=== PATIENT | female | born 1995 | race Caucasian/White ===

== ENCOUNTER → 2019-01-04 | Outpatient (CLI) | payer OTHER ==
--- NOTE | 2019-01-04 11:23 | RAD ---
Study: Ultrasound first trimester DATE: 01/04/2019 11:00 AM INDICATION: Assess viability. COMPARISON: None. TECHNIQUE: Transabdominal ultrasonography of the pelvis was performed. Color Doppler and duplex were utilized as appropriate. FINDINGS: The uterus is measured at 12.2 x 0.3 x 6.8 cm. Intrauterine gestational sac measuring 4.5 x 3.9 x 3.4 cm with a mean sac diameter of 3.9 cm corresponding to an estimated gestational age of 9 weeks 2 days. pole is present with a measured crown-rump length of 1.89 cm. No yolk sac is seen. No heart tones detected. The cervix measures 3.9 cm in length. The right ovary measures 3.6 x 2.6 x 2.7 cm. The left ovary measures 3.3 x 2.1 x 2.2 cm. Normal Doppler flow to both ovaries. No free fluid within the pelvis. IMPRESSION: Intrauterine gestational sac containing a pole with a measured crown-rump length of 1.9 cm but no detectable heart tones. No yolk sac is seen. Estimated gestational age based on crown-rump length is 8 weeks 3 days and by mean sac diameter of 9 weeks 2 days. Based on last menstrual period estimated gestational age is 13 weeks 0 days. The absence of heart tones in the setting of the obtained gestational sac and crown-rump length measurement is essentially diagnostic of a failed first trimester . The cervix remains closed. Obstetrical consultation is recommended. Electronically signed by: IBETH SALINAS MD (01/04/2019 11:20 AM) [id number]
== END | disposition home or self-care (01) ==
LOC: US 10:34
PROVIDERS: ATTEND Obstetrics & Gynecology
DX: Z34.91 Encounter for supervision of normal pregnancy, unspecified, first trimester (principal); Z3A.13 13 weeks gestation of pregnancy
CPT/HCPCS: 76801

== ENCOUNTER 2019-01-14 12:02 | Day surgery (SDC) | payer OTHER ==
[~2019-01-14] VITALS: Ht 160 cm; Wt 59.0 kg
[~2019-01-14 12:02] MED LIST: HYDROmorphone 2 MG/ML VIAL IV PRN; IV RINGERS,LACTATED 1000ML 1,000 ML IV SCH; LIDOCAINE 1% PF 2 ML VIAL. ID PRN; MORPHINE SULFATE 2 MG/ML VIAL. IV PRN; ONDANSETRON PF 4 MG/2 ML VIAL. IV PRN; PROCHLORPERAZINE 10 MG/2 ML VIAL. IV PRN; fentaNYL PF VIAL 100 MCG/2 ML VIAL IV PRN
[2019-01-14] MEDS ORDERED: KETOROLAC 30 MG/ML VIAL. ONE (14:11)
[2019-01-14] MEDS ORDERED: LIDOCAINE 2% PF 5 ML VIAL. ONE (14:11)
[2019-01-14] MEDS ORDERED: ONDANSETRON PF 4 MG/2 ML VIAL. ONE (14:11)
[2019-01-14] MEDS ORDERED: DEXAMETHASONE SOD PHOS 4 MG/ML VIAL ONE (14:11)
[2019-01-14] MEDS ORDERED: PROPOFOL 20 ML IV ONE (14:11)
[2019-01-14] MEDS ORDERED: SEVOFLURANE 16 TO 30 MINUTES. IH ONE (14:11)
[2019-01-14] MEDS ORDERED: miSOPROStol 200 MCG TABLET ONE (14:47)
[2019-01-14] MEDS ORDERED: miSOPROStol 200 MCG TABLET VG ONE (14:52)
--- NOTE | 2019-01-14 14:59 | PDOC ---
BRIEF OPERATIVE NOTE Date: Jan 14, 2019 Pre-Op Diagnosis MAB Post-Op Diagnosis SAme Procedure Performed Suction D&C Surgeon Dr. Garcia Anesthesia Type: General Blood Loss 100 ml Specimens Obtained POC Findings POC Complications none Operative Note see dictation SABRA GARCIA Jr, MD Jan 14, 2019 14:59
--- NOTE | 2019-01-14 15:01 | DISCH ---
DISCHARGE INSTRUCTIONS Condition on Discharge Condition on Discharge: Stable Activity After Discharge Activity Instructions for Disc: Activity as tolerated Lifting Instructions after Dis: No heavy lifting Driving Instructions after Dis: Do not drive today Diet after Discharge Diet after Discharge: Regular Contacting the DRRamona after DC Call your doctor for: Concerns you may have Follow-Up Follow up with: Dr. Garcia in 1 week SABRA GARCIA Jr, MD Jan 14, 2019 15:01
[2019-01-14] MEDS ORDERED: fentaNYL PF VIAL 100 MCG/2 ML VIAL ONE (15:14)
[2019-01-14] MEDS ORDERED: OXYC-325 PO (15:34)
[2019-01-14] MEDS ORDERED: oxyCODONE/APAP 5/325 1 TAB TABLET ONE (15:40)
[2019-01-14] MEDS ORDERED: oxyCODONE/APAP 5/325 1 TAB TABLET PO ONE (15:45)
[2019-01-14 15:49] VITALS: BP 100/61
--- NOTE | 2019-01-14 20:30 | OP ---
DATE OF SURGERY: 01/14/2019 PREOPERATIVE DIAGNOSIS: Missed . POSTOPERATIVE DIAGNOSIS: Missed . PROCEDURE: Suction D and C. SURGEON: Sabra Garcia MD ANESTHESIA: GETA. ESTIMATED BLOOD LOSS: 100 mL. COMPLICATIONS: None. FINDINGS: Products of conception, 6 weeks, missed AB. SUMMARY: A 23-year-old 2, para 1 at 6 weeks with missed AB requiring suction D and C. She was counseled on risks, benefits and expectations and voiced clear understanding to proceed. DESCRIPTION OF PROCEDURE: The patient was taken to surgery suite and placed in dorsal lithotomy position where she was prepped with Betadine solution and draped in sterile fashion. After adequate anesthesia, weighted speculum and curved Kezia placed vaginally. Anterior lip of the cervix grasped with a single tooth tenaculum, curved Bellvue was removed. The cervix was dilated with Hegar dilators up to size 8. The 7 curved tip suction curette was then utilized removing blood and products of conception. Sharp curettage took place until a fine gritty surface was palpated circumferentially. Suction curette was passed once again removing blood products and products of conception. An 800 mcg of Cytotec were placed rectally. Single tooth tenaculum and weighted speculum were removed. The patient tolerated the procedure well and was taken to recovery room in stable condition. Sponge and needle count correct x 3. SABRA GARCIA MD DR: SHAD/namita JOB#: [id number] / [id number]
--- NOTE | 2019-01-18 18:06 | PATHOLOGY ---
[facility] Accession Number: [id number] . 01 Material submitted: . product of conception - PRODUCTS OF CONCEPTION . 01 Clinical history: . Missed . 02 Diagnosis: Uterine contents, suction D and C: - Products of conception, comprised of segments of tissue, immature chorionic villi, placental membranous tissue, and predominant segments of decidual tissue. (JPM:surgical elastic knitter hand frame; 01/18/2019) MBR 01/18/2019 1325 Local . 02 Electronically signed: . Ravin Hammond MD, Pathologist NPI- [id number] . 01 Gross description: . Received in formalin labeled "Sangeetha Ramirez, products of conception," is a 9.2 x 4.1 x 1.1 cm aggregate of charles-brown soft tissue fragments admixed with scant hemorrhagic mucoid material and possible villiform tissue. tissue cannot be identified grossly. Vesicular structures are not identified grossly. Wardrobe Coordinator tissue is submitted in cassettes A1 through A3, to include the possible villiform tissue. ([facility]; 01/16/2019) XDC/XDC 01/16/2019 0759 Local . 02 Pathologist provided ICD-10: O02.1, O02.89 . 02 CPT . 915079 Specimen Comment: A courtesy copy of this report has been sent to [phone] Specimen Comment: Report sent to Performed at: [facility] [address], [place] [id number] MD Mathieu Huddleston MD Phone: [phone] Performed at: [facility] [address] [place], [place] [id number] MD Ravin Hammond MD Phone: [phone]
== END 2019-01-14 16:25 | disposition home or self-care (01) ==
LOC: SURG 12:02
PROVIDERS: ATTEND Obstetrics & Gynecology
DX: O02.1 Missed abortion (principal); Z87.440 Personal history of urinary (tract) infections
CPT/HCPCS: 59820; A7015; J0690; J1100; J1885; J2001; J2405; J2704; J3010

== ENCOUNTER 2019-01-25 06:29 | Inpatient (IN) | payer OTHER ==
[~2019-01-25] VITALS: Ht 157.5 cm; Wt 60.3 kg
[~2019-01-25 06:29] MED LIST changes: -HYDROmorphone 2 MG/ML VIAL IV PRN; -IV RINGERS,LACTATED 1000ML 1,000 ML IV SCH; -LIDOCAINE 1% PF 2 ML VIAL. ID PRN; -MORPHINE SULFATE 2 MG/ML VIAL. IV PRN; -ONDANSETRON PF 4 MG/2 ML VIAL. IV PRN; +OXYC-325 PO; -PROCHLORPERAZINE 10 MG/2 ML VIAL. IV PRN; -fentaNYL PF VIAL 100 MCG/2 ML VIAL IV PRN
[2019-01-25 06:40] VITALS: BP 117/79
[2019-01-25] MEDS ORDERED: IBUPROFEN 400 MG TABLET. PO PRN (10:15)
[2019-01-25] MEDS ORDERED: IV RINGERS,LACTATED 1000ML 1,000 ML IV SCH (10:15)
--- NOTE | 2019-01-25 10:16 | NUR ---
Reena Assessment 0715, reena assessment done at this time, patient spotting. education given on bleeding and when to call nursing staff, verbalized understanding. Addendum: 01/25/19 at 1024 by ABIODUN RM RN Amended: Links added.
[2019-01-25 11:05] VITALS: BP 104/65
--- NOTE | 2019-01-25 15:49 | PDOC1 ---
History and Physical Date of Admission Date of Admission DATE: 01/25/19 TIME: 15:46 Identification/Chief Complaint Chief Complaint vaginal bleeding History of Present Illness History of Present Illness 23 y/o A1 presented as transfer from [facility] due to vaginal bleeding 1 wk s/p suction D&C for missed . SHe passed small tissue, then vaginal bleeding was very light. No further vaginal bleeding since admission to hospital. Counseled on expectations suction D&C and recovery. Past Medical History Cardiovascular: No pertinent hx Past Surgical History Past Surgical History: Other (Suction D&C) Current Medications Current Medications Current Medications Ringer's Solution 1,000 ml @ 175 mls/hr Q5H43M IV Last administered on 01/25/19at 10:45; Start 01/25/19 at 10:15 Ibuprofen (Motrin) 800 mg PRN Q8HRS PRN PO INFLAMMATION; Start 01/25/19 at 10:15 Active Scripts Active Reported Percocet 5-325 mg Tablet (Oxycodone HCl/Acetaminophen) 1 Each Tablet 1-2 Each PO PRN Q4-6HRS PRN No Known Medications Prior To Admisstion (Info) Each 1 Each MC DAILY Allergies Allergies: Coded Allergies: No Known Drug Allergies (Unverified , 01/14/19) ROS General: No: Chills, Night Sweats, Fatigue, Malaise, Appetite, Other PSYCHOLOGICAL ROS: No: Anxiety, Behavioral Disorder, Concentration difficultie, Decreased libido, Depression, Disorientation, Hallucinations, Hostility, Irritablity, Memory difficulties, Mood Swings, Obsessive thoughts, Physical abuse, Sexual abuse, Sleep disturbances, Suicidal ideation, Other Eyes: No Blurry vision, No Decreased vision, No Double vision, No Dry eyes, No Excessive tearing, No Eye Pain, No Itchy Eyes, No Loss of vision, No Photophobia, No Scotomata, No Uses contacts, No Uses glasses, No Other HEENT: No: Heacaches, Visual Changes, Hearing change, Nasal congestion, Nasal discharge, Oral lesions, Sinus pain, Sore Throat, Epistaxis, Sneezing, Snoring, Tinnitus, Vertigo, Vocal changes, Other ALLERGY AND IMMUNOLOGY: No: Hives, Insect Bite Sensitivity, Itchy/Watery Eyes, Nasal Congestion, Post Nasal Drip, Seasonal Allergies, Other Hematological and Lymphatic: No: Bleeding Problems, Blood Clots, Blood Transfusions, Brusing, Night Sweats, Pallor, Swollen Lymph Nodes, Other ENDOCRINE: No: Breast Changes, Galactorrhea, Hair Pattern Changes, Hot Flashes, Malaise/lethargy, Mood Swings, Palpitations, Polydipsia/polyuria, Skin Changes, Temperature Intolerance, Unexpected Weight Changes, Other Breast: No New/Changing Breast Lumps, No Nipple changes, No Nipple discharge, No Other Respiratory: No: Cough, Hemoptysis, Orthopnea, Pleuritic Pain, Shortness of breath, SOB with excertion, Sputum Changes, Stridor, Tachypnea, Wheezing, Other Cardiovascular: No Chest Pain, No Palpitations, No Orthopnea, No Paroxysmal Noc. Dyspnea, No Edema, No Lt Headedness, No Other Gastrointestinal: No Nausea, No Vomiting, No Abdominal Pain, No Diarrhea, No Constipation, No Melena, No Hematochezia, No Other Genitourinary: No Dysuria, No Frequency, No Incontinence, No Hematuria, No Retention, No Discharge, No Urgency, No Pain, No Flank Pain, No Other, No , No , No , No , No , No , No Skin: No Dry Skin, No Eczema, No Hair Changes, No Lumps, No Mole Changes, No Mottling, No Nail Changes, No Pruritus, No Rash, No Skin Lesion Changes, No Other, No Acne Physical Exam General: Alert, Oriented X3, Cooperative HEENT: Atraumatic Lungs: Clear to auscultation Heart: S1S2 Breasts: Normal Abdomen: Normal bowel sounds, Soft, No tenderness, No masses Psych/Mental Status: Mental status NL Vitals Vitals Vital Signs Date Time Temp Pulse Resp B/P (MAP) Pulse Ox O2 Delivery O2 Flow Rate FiO2 01/25/19 11:05 98.4 84 16 104/65 (78) Room Air 97.0 98.4 01/25/19 06:40 97 VTE Prophylaxis Ordered VTE Prophylaxis Devices: No VTE Pharmacological Prophylaxi: No Assessment/Plan Assessment/Plan A: AUB s/p suction D&C P: Pt. stable and comfortable going home. F/u as scheduled. SABRA LINARES Jr, MD Jan 25, 2019 15:49
--- NOTE | 2019-01-25 15:51 | DISCH ---
DISCHARGE INSTRUCTIONS Condition on Discharge Condition on Discharge: Stable Activity After Discharge Activity Instructions for Disc: Activity as tolerated Lifting Instructions after Dis: No heavy lifting Driving Instructions after Dis: Do not drive today Diet after Discharge Diet after Discharge: Regular Contacting the DRRamona after DC Call your doctor for: Concerns you may have Follow-Up Follow up with: Dr. Garcia in 4 months. SABRA GARCIA Jr, MD Jan 25, 2019 15:51
[2019-01-25 16:10] VITALS: BP 104/59
--- NOTE | 2019-01-25 17:17 | NUR ---
Discharge Note: PT DISCHARGED HOME WITH SELF CARE. PT LEFT FACILITY VIA PRIVATE VEHICLE WITH SELF. PT STABLE AND ALERT UPON DISCHARGE. PT PIV REMOVED FROM R FA WITHOUT COMPLICATIONS, BANDAGE APPLIED. PT EDUCATED ABOUT DISCHARGE INSTRUCTIONS, DISCHARGE MEDICATIONS, AND FOLLOW-UP INSTRUCTIONS. PT VOICED NO CONCERNS AT THIS TIME. PT LEFT WITH ALL PERSONAL BELONGINGS. MISHEL GUTIERREZ Discharge instructions and discharge home medications reviewed with Patient and a copy given. All questions have been answered and understanding verbalized.
== END 2019-01-25 17:20 | disposition home or self-care (01) | DRG 761 ==
LOC: 3 NORTH 06:29
PROVIDERS: ADMIT Obstetrics & Gynecology; ATTEND Obstetrics & Gynecology
DX: N93.9 Abnormal uterine and vaginal bleeding, unspecified (principal)
CPT/HCPCS: J7120; G0378